=== PATIENT | female | born 1975 | race Caucasian/White ===

== ENCOUNTER 2018-10-15 21:14 | Inpatient (IN) ==
[2018-10-16] MEDS ORDERED: Ondansetron 4 MG/2 ML VIAL IVP PRN (01:13)
[2018-10-16] MEDS: 0.9 % Sodium Chloride 1,000 ML IVC SCH ×3 (01:26→23:13)
[2018-10-16] MEDS: *HR* FentaNYL (PF) 100 MCG/2 ML VIAL IVP PRN ×3 (01:27→20:07)
[2018-10-16] MEDS ORDERED: *HR* Promethazine 25 MG/ML VIAL IVP PRN (01:32)
[2018-10-16 02:02] LABS: Basophils % 0.3 %; Eosinophils # 0.1 K/mcL (0.0-0.6); Eosinophils % 0.8 %; Hematocrit 32.1 % (35.3-44.9); Hemoglobin 10.8 g/dL (11.5-15.4); Immature Granulocytes % 0.5 % (0-4); Lymphocytes # 2.4 K/mcL (0.6-4.6); Lymphocytes % 21.3 %; Mean Corpuscular HGB Conc 33.6 g/dL (31.6-35.5); Mean Corpuscular Hemoglobin 32.2 pg (28.0-33.3); Mean Corpuscular Volume 95.8 fL (83.0-100.0); Mean Platelet Volume 9.1 fL (9.4-12.4); Monocytes # 1.2 K/mcL (0.0-1.3); Monocytes % 10.6 %; Neutrophils # 7.4 K/mcL (1.6-8.9); Platelet Count 231 K/mcL (140-400); Red Blood Count 3.35 M/mcL (3.82-4.97); Red Cell Distribution Width 12.4 % (11.5-14.5); Segmented Neutrophils % 66.5 %
[2018-10-16] MEDS ORDERED: Naloxone 0.4 MG/ML INJ IVP PRN (02:02)
[2018-10-16] MEDS ORDERED: Acetaminophen 325 MG TABLET PO PRN (02:02)
[2018-10-16 02:12] LABS: Alanine Aminotransferase 8 Units/L (7-52); Albumin 3.2 g/dL (3.5-5.7); Albumin/Globulin Ratio 1.4 (1.1-2.2); Alkaline Phosphatase 43 Units/L (34-104); Aspartate Amino Transferase 9 Units/L (13-39); BUN/Creatinine Ratio 17 (6-26); Bilirubin,Total 0.3 mg/dL (0.3-1.0); Blood Urea Nitrogen 7 mg/dL (6-20); Carbon Dioxide 22 mEq/L (23-29); Chloride 111 mEq/L (98-107); Globulin 2.3 g/dL (2.4-3.5); Glucose 86 mg/dL (70-105); Osmolality,Calculated 283 (280-300); Potassium 3.4 mEq/L (3.5-5.1); Sodium 138 mEq/L (136-145); Total Protein 5.5 g/dL (6.4-8.9); eGFR For Non-African Americans > 60 (> 60)
--- NOTE | 2018-10-16 02:14 | Internal Med History&Physical ---
Date of Encounter: 10/16/18 Time of Encounter: 01:30 Internal Medicine - H&P: HPI Chief complaint: Abdominal pain Admitted From: Intrahospital Transfer Plans for Post Hospital Care: Home History of present illness: Ms. Freitas is a 43 year old female w/PMH of anxiety and depression presents as a transfer from [facility] ED for CC of abdominal pain and flank pain that began on Thursday. Pt. reports associated sx of fever and chills which have since subsided. Pt. states this has never happened before. Reports no alleviating or aggravating factors. States she has right flank pain and left quadrant pain. Pt. states she was seen at Urgent Care and dxd w/constipation and discharged on mag citrate w/o relief. Pt. denies unusual bleeding or bloody/dark stools, recent illness, nausea, vomiting, headache, changes in vision, chest pain, shortness of breath, cough, chest congestion, diarrhea, constipation, dizziness, li ghtheadedness, numbness, tingling, pre-syncope, or syncope. Past Med Surg Social Fam HX - Past Medical History Source: patient, old records reviewed, obtained from family Medical history: no medical history Psychiatric history: anxiety, depression - Past Surgical History Surgical History: hysterectomy - Social History Smoking Status: Current every day smoker Packs per day: <1 PPD Smokeless Tobacco Status: No Alcohol use: occasionally, recent Drug use: none Current living situation: Home, With Family Activity Level: Independent ambulation Recent Out of Country Travel Within the Last 8 Weeks: No Exposure or Possible Exposure to Illness During Travel: No - Family History Grandmother Race: Family Member Ethnicity: Non- Living Status: Hx Family Endocrine Disorder: Yes (DM) Father Race: Family Member Ethnicity: Non- Living Status: Still Living Hx Family Medical Disorders: No Mother Race: Family Member Ethnicity: Non- Living Status: Still Living Hx Family Cardiac Disorders: Yes (Atrial fibrillation) Brother Race: Family Member Ethnicity: Non- Living Status: Still Living Hx Family Medical Disorders: No Internal Medicine - H&P: Meds Escitalopram [Lexapro] 10 mg PO DAILY 10/15/18 [History] Allergy/AdvReac Type Severity Reaction Status Date / Time No Known Allergies Allergy Verified 11/06/16 02:15 All Systems PM: A 10-system review of systems was performed and is negative for pertinent findings except as documented above in the HPI. - Constitutional Constitutional: no chills, no fever(s), no night sweats - EENT Eyes: no change in vision, no discharge, no pain, no photophobia Ears: no ear discharge, no ear pain, no tinnitus Nose, mouth and throat: no dysphagia, no nasal discharge, no neck pain, no sore throat - Breasts Breasts: as per HPI - Cardiovascular Cardiovascular ROS IM: no chest pain, no diaphoresis, no dyspnea, no lightheadedness, no palpitations, no syncope - Respiratory Respiratory: no cough, no dyspnea, no wheezing, no excessive phlegm production - Gastrointestinal Gastrointestinal: as per HPI, abdominal pain, no diarrhea, no hematemesis, no hematochezia, no melena, no nausea, no vomiting - Genitourinary Genitourinary: no change in urinary stream, no dysuria, no flank pain, no hematuria Menstruation: as per HPI, post hysterectomy - Musculoskeletal Musculoskeletal ROS IM: no numbness, no tingling - Integumentary Integumentary IM: no rash, no unusual bruising - Neurological Neurological ROS: no confusion, no convulsions, no focal weakness, no numbness, no tingling, no tremor(s) - Psychiatric Psychiatric: as per HPI - Endocrine Endocrine IM: as per HPI - Hematologic/Lymphatic Hematologic/Lymphatic: no easy bruising - Allergic/Immunologic Allergic/Immunologic: as per HPI - Constitutional Vitals: Temp Pulse Resp BP Pulse Ox 98.1 F 78 15 112/75 98 10/15/18 23:52 10/15/18 23:52 10/15/18 23:52 10/15/18 23:52 10/15/18 23:52 General appearance: Present: cooperative, mild distress (Left quadrant abdominal pain/Right flank pain), A&O X 3, pleasant, answers questions appropriately Exam: Pt. examined at bedside. Pt. resting in bed reporting abdominal and flank pain but states her nausea, fever, and chills have subsided. Discussed CT of the abdomen/pelvis w/pt. and her and plan of care regarding NPO status, IV antibiotics, and surgical consult. All questions answered. Pt. denies any other sx or complaints at this time. VS: 98.1F temp, HR 78, RR 15, BP 112/75, SPO2 98% on room air. - Head Head exam: Present: atraumatic, normocephalic - Eye Eye exam: Present: PERRL, conjuntiva pink, sclera anicteric Pupils: Present: PERRL - ENT ENT exam: Present: normal exam - Neck Neck exam general surgery: Present: supple, trachea midline. Absent: lymphadenopathy - Respiratory Respiratory exam: Present: CTAB. Absent: accessory muscle use, rales, rhonchi, wheezes - Cardiovascular Cardiovascular exam: Present: RRR, +S1, +S2. Absent: diastolic murmur, gallop, rubs, systolic murmur - GI/Abdominal GI/Abdominal exam: Present: hypoactive bowel sounds, soft, tenderness, no peritoneal signs. Absent: distended - Rectal Rectal exam: Present: deferred - Additional comments: exam deferred. - Extremities Exam Extremities exam: Present: warm, radial pulses palpable and symmetrical. Absent: calf tenderness, cyanotic, pedal edema - Back Exam Back exam: Present: normal inspection - Neurological Exam Neurological exam: Present: alert, CN II-XII intact, oriented X3, no focal deficits. Absent: pronater drift, facial droop, speech deficit - Psychiatric Psychiatric exam: Present: normal affect, normal mood - Skin Skin exam: Present: dry, intact Internal Med - H&P Results - Labs CBC & Chem 7: 10/16/18 01:40 10/16/18 01:40 Labs: Short CBC 10/16/18 Range/Units 01:40 WBC 11.1 (4.3-11.1) K/mcL Hgb 10.8 L D (11.5-15.4) g/dL Hct 32.1 L (35.3-44.9) % Plt Count 231 (140-400) K/mcL Neutrophils # 7.4 (1.6-8.9) K/mcL - Diagnostic Studies CT scan - abdomen Additional comments: EXAMINATION: CT OF THE ABDOMEN AND PELVIS WITHOUT CONTRAST 10/15/2018 6:50 pm TECHNIQUE: CT of the abdomen and pelvis was performed without the administration of intravenous contrast. Multiplanar reformatted images are provided for review. Dose modulation, iterative reconstruction, and/or weight based adjustment of the mA/kV was utilized to reduce the radiation dose to as low as reasonably achievable. COMPARISON: None. HISTORY: ORDERING SYSTEM PROVIDED HISTORY: Left flank pain FINDINGS: Lower Chest: Lung bases are clear and the heart size is normal. Organs: The liver, spleen, pancreas, adrenal glands and kidneys are normal with the limitations of a noncontrast study. There is no urolithiasis or acute obstructive uropathy. There are no calcified gallstones. GI/Bowel: There is acute diverticulitis in the proximal descending colon with bowel wall thickening and pericolonic fat stranding. There is a small amount of extraluminal gas suggesting walled-off perforation. There is no evidence of a drainable fluid collection/abscess. Scattered diverticula are present in the left colon. Unopacified bowel loops are otherwise unremarkable. The appendix is normal. Pelvis: The uterus is apparently surgically absent. Urinary bladder is unremarkable. There are several phleboliths in the lower pelvis. Peritoneum/Retroperitoneum: There is no adenopathy, free air or free fluid. Bones/Soft Tissues: No acute bone or soft tissue abnormality. CT/CT abd pelvis wo no iv no oral IMPRESSION: Acute short segment diverticulitis involving the proximal descending colon. There are few small bubbles of extraluminal gas suggesting a walled-off perforation. There is no drainable fluid collection/abscess. Follow-up is recommended. D/ / Ever Gallo MD / Ever Gallo MD Interpreting Provider: Ever Gallo MD - Assessment and plan (1) Diverticulitis of large intestine with perforation Current Visit: Yes Status: Acute Assessment and plan: Acute diverticulitis of the large intestine w/suggested walled-off perforation. Pt. states abdominal pain and flank pain began on Thursday. Pt. reports associated sx of fever and chills which have since subsided. Pt. states this has never happened before. Reports no alleviating or aggravating factors. States she has right flank pain and left quadrant pain. Pt. states she was seen at Urgent Care and dxd w/constipation and discharged on mag citrate w/o relief. Pt. denies unusual bleeding or bloody/dark stools. CT of the abdomen/pelvis shows acute short segment diverticulitis involving the proximal descending colon. There are few small bubbles of extraluminal gas suggesting a walled-off perforation. There is no drainable fluid collection/abscess. Follow-up is recommended. NPO. 0.9 IV fluids @ 100 mls/hr. Stair-step pain medications for pain management. Zofran and Phenergan IVP ordered for N/V control. Surgery consult ordered but not confirmed d/t late hour. A.M. team to confirm Surgery consult w/Dr. Farias. IVPB Flagyl and Levaquin ordered for infection control. Pts. WBC 13.0 on admission. Pt. afebrile on admission and does not currently meet sepsis criteria but will be monitored closely overnight. Pt. is high risk for further morbidity, complications, and infection d/t current new onset of diverticulitis, CT showing possible walled-off perforation, leukocytosis, current pain requiring pain mgmt, and risk for sepsis. Inpatient. Qualifiers: Diverticulitis bleeding: without bleeding Qualified Code(s): K57.20 - Diverticulitis of large intestine with perforation and abscess without bleeding (2) Abdominal pain Current Visit: Yes Status: Acute Assessment and plan: Acute left quadrant abdominal pain. CT of the abdomen/pelvis shows acute short segment diverticulitis involving the proximal descending colon. There are few small bubbles of extraluminal gas suggesting a walled-off perforation. There is no drainable fluid collection/abscess. Follow-up is recommended. NPO. 0.9 IV fluids @ 100 mls/hr. Stair-step pain medications for pain management. Zofran and Phenergan IVP ordered for N/V control. Qualifiers: Abdominal location: left upper quadrant Qualified Code(s): R10.12 - Left upper quadrant pain (3) Anxiety and depression Current Visit: Yes Status: Chronic Assessment and plan: Hx of chronic anxiety and depression. Continue pts. Lexapro. (4) DVT prophylaxis Current Visit: Yes Status: Acute Assessment and plan: Bilateral SCDs on LEs for DVT prophylaxis d/t possible surgical intervention. - Time Spent With Patient Total time spent is greater than 50% in coordination of care (as documented) at patient's floor/unit and/or counseling patient: Greater than 35 minutes
[2018-10-16] MEDS ORDERED: *HR* Heparin 5,000 UNIT/ML VIAL SQ SCH (06:00)
[2018-10-16 07:49] LABS: Basophils % 0.2 %; Eosinophils # 0.1 K/mcL (0.0-0.6); Eosinophils % 1.1 %; Hematocrit 31.3 % (35.3-44.9); Hemoglobin 10.4 g/dL (11.5-15.4); Immature Granulocytes % 0.5 % (0-4); Lymphocytes # 1.9 K/mcL (0.6-4.6); Lymphocytes % 18.3 %; Mean Corpuscular HGB Conc 33.2 g/dL (31.6-35.5); Mean Corpuscular Hemoglobin 31.8 pg (28.0-33.3); Mean Corpuscular Volume 95.7 fL (83.0-100.0); Mean Platelet Volume 9.8 fL (9.4-12.4); Monocytes # 1.1 K/mcL (0.0-1.3); Platelet Count 259 K/mcL (140-400); Red Blood Count 3.27 M/mcL (3.82-4.97); Red Cell Distribution Width 12.6 % (11.5-14.5); Segmented Neutrophils % 68.9 %
[2018-10-16 08:18] LABS: Alanine Aminotransferase 7 Units/L (7-52); Albumin 3.1 g/dL (3.5-5.7); Albumin/Globulin Ratio 1.3 (1.1-2.2); Alkaline Phosphatase 43 Units/L (34-104); Aspartate Amino Transferase 10 Units/L (13-39); BUN/Creatinine Ratio 18 (6-26); Bilirubin,Total 0.3 mg/dL (0.3-1.0); Blood Urea Nitrogen 7 mg/dL (6-20); Calcium 7.9 mg/dL (8.6-10.3); Carbon Dioxide 21 mEq/L (23-29); Chloride 111 mEq/L (98-107); Chol/HDL Ratio 2.9 (0-4.9); Cholesterol 117 mg/dL (< 200); Globulin 2.3 g/dL (2.4-3.5); Glucose 80 mg/dL (70-105); HDL Cholesterol 41 mg/dL (40-59); LDL Cholesterol,Calculated 65 mg/dL (0-99); Magnesium 1.8 mg/dL (1.6-2.6); Osmolality,Calculated 285 (280-300); Potassium 3.4 mEq/L (3.5-5.1); Sodium 139 mEq/L (136-145); Total Protein 5.4 g/dL (6.4-8.9); Triglycerides 55 mg/dL (< 150); eGFR For Non-African Americans > 60 (> 60)
[2018-10-16] MEDS: *HR* OxyCODONE Immed Rel 5 MG TABLET PO PRN ×3 (09:07→23:13)
[2018-10-16] MEDS: MetroNIDAZOLE 500 MG/100 ML 500 MG/100 ML BAG IVPB SCH ×3 (09:08→23:13)
[2018-10-16] MEDS ORDERED: Potassium Chloride Elixir 20 MEQ/15 ML UDC PO ONE (10:08)
--- NOTE | 2018-10-16 10:25 | General Surgery Consult Note ---
Date of Encounter: 10/16/18 Time of Encounter: 10:10 History of Present Illness Reason for consult: abdominal pain (Left upper quadrant abdominal pain, diverticulitis) Requesting physician: Pernell Ricardo History of present illness: 43 yo, transferred from [facility] after presenting there with approximately 3 day history of progressive left sided abdominal pain. There were apparent associated symptoms of fevers and chills but no nausea or vomiting. CT abdomen/pelvis demonstrated pericolonic inflammation proximal descending colon with bowel wall thickening and pericolonic fat stranding. A small amount of extraluminal air consistent with a walled off perforation was also identified. She was referred to [facility] for further evaluation and treatment, including surgical evaluation and possible intervention. The patient has never had symptoms like this before. Past medical history: Anxiety, depression Surgical history: Hysterectomy Allergies: No known drug allergies Medications: Lexapro 10 mg by mouth daily Social history: G0, P0; patient admits to tobacco use, less than a pack per week and alcohols consumption on weekends. Patient denies any illicit drug use. Family history: Not obtained Physical examination: Age-appropriate woman resting comfortably in her hospital bed. She is in no acute distress despite her complaints of left upper quadrant abdominal pain. The patient indicates that overnight the pain has not improved, nor worsened. The patient has remained afebrile, currently 98.2, pulse ranging 78-95, respirations 16-18, blood pressure 108/73 to 116/78 Skin: Warm, no obvious jaundice. Several cutaneous tattoos are evident Lungs: Clear bilaterally; minimal left-sided pain on deep inspiration Cardiac: Regular rate, no appreciable murmurs Abdomen: Tender in the left upper quadrant without discernible intra- abdominal masses. No peritoneal signs or rebound. Bowel sounds are active but diminished Extremities: No obvious clubbing, cyanosis, or edema. CT abdomen/pelvis - reviewed with [facility] Labs: WBC 10.1, hemoglobin 10.4 with hematocrit 31.3; differential within normal limits; platelet count 259,000. (WBC 13.0, hemoglobin 13.0 with hematocrit 37.4 per [facility] 10/15/2018) Sodium 139, potassium 3.4, chloride 111, the 17, creatinine 0.4 LFTs within normal limits Impression: 43-year-old, transferred from [facility] after presenting there with new onset left sided of abdominal and flank pain. Findings are consistent with acute diverticulitis of the proximal descending colon with a small collection of extraluminal air consistent with perforation. This perforation appears to be contained. Anemia / depressed H&H likely due to dilution/IV resuscitation at [facility] and following transfer to [facility] Hypokalemia History of anxiety/depression Recommendations: Continue IV antibiotics (patient currently on Levaquin and metronidazole). allow sips water and ice chips; may have oral meds (lexapro) correct hypokalemia Continue to monitor abdominal status; worsening pain, developing peritoneal signs are indications for emergent surgery. I will follow along with you and make further recommendations based on the patient's status and response to intervention. Past Med Surg Social Fam HX - Past Medical History Medical history: no medical history Psychiatric history: anxiety, depression - Past Surgical History Surgical History: hysterectomy - Social History Smoking Status: Current every day smoker Packs per day: <1 PPD Smokeless Tobacco Status: No Alcohol use: occasionally, recent Drug use: none - Family History Grandmother Race: Family Member Ethnicity: Non- Living Status: Hx Family Endocrine Disorder: Yes (DM) Father Race: Family Member Ethnicity: Non- Living Status: Still Living Hx Family Medical Disorders: No Mother Race: Family Member Ethnicity: Non- Living Status: Still Living Hx Family Cardiac Disorders: Yes (Atrial fibrillation) Brother Race: Family Member Ethnicity: Non- Living Status: Still Living Hx Family Medical Disorders: No Medications and Allergies Escitalopram [Lexapro] 10 mg PO DAILY 10/15/18 [History] Allergy/AdvReac Type Severity Reaction Status Date / Time No Known Allergies Allergy Verified 11/06/16 02:15 Review of Systems All systems PM: The remainder of the systems were reviewed and are negative General Surgery Exam Initial Vital Signs Temp Pulse Resp BP Pulse Ox 98.1 F 78 15 112/75 98 10/15/18 23:52 10/15/18 23:52 10/15/18 23:52 10/15/18 23:52 10/15/18 23:52 Exam Initial Vital Signs Temp Pulse Resp BP Pulse Ox 98.1 F 78 15 112/75 98 10/15/18 23:52 10/15/18 23:52 10/15/18 23:52 10/15/18 23:52 10/15/18 23:52 Results - Labs 10/16/18 06:58 10/16/18 06:58 Abnormal lab results RBC 3.27 M/mcL (3.82-4.97) L 10/16/18 06:58 Hgb 10.4 g/dL (11.5-15.4) L 10/16/18 06:58 Hct 31.3 % (35.3-44.9) L 10/16/18 06:58 Potassium 3.4 mEq/L (3.5-5.1) L 10/16/18 06:58 Chloride 111 mEq/L (98-107) H 10/16/18 06:58 Carbon Dioxide 21 mEq/L (23-29) L 10/16/18 06:58 Creatinine 0.40 mg/dL (0.60-1.20) L 10/16/18 06:58 Calcium 7.9 mg/dL (8.6-10.3) L 10/16/18 06:58 AST 10 Units/L (13-39) L 10/16/18 06:58 Serum Total Protein 5.4 g/dL (6.4-8.9) L 10/16/18 06:58 Albumin 3.1 g/dL (3.5-5.7) L 10/16/18 06:58 Globulin 2.3 g/dL (2.4-3.5) L 10/16/18 06:58 Diabetes panel 10/16/18 10/16/18 Range/Units 01:40 06:58 Sodium 138 139 (136-145) mEq/L Potassium 3.4 L 3.4 L (3.5-5.1) mEq/L Chloride 111 H 111 H (98-107) mEq/L Carbon Dioxide 22 L 21 L (23-29) mEq/L BUN 7 7 (6-20) mg/dL Creatinine 0.41 L 0.40 L (0.60-1.20) mg/dL Glucose 86 80 (70-105) mg/dL Calcium 8.0 L 7.9 L (8.6-10.3) mg/dL AST 9 L 10 L (13-39) Units/L ALT 8 7 (7-52) Units/L Alkaline Phosphatase 43 43 (34-104) Units/L Albumin 3.2 L 3.1 L (3.5-5.7) g/dL Triglycerides 55 (< 150) mg/dL HDL Cholesterol 41 (40-59) mg/dL Calcium panel 10/16/18 10/16/18 Range/Units 01:40 06:58 Calcium 8.0 L 7.9 L (8.6-10.3) mg/dL Albumin 3.2 L 3.1 L (3.5-5.7) g/dL Pituitary panel 10/16/18 10/16/18 Range/Units 01:40 06:58 Sodium 138 139 (136-145) mEq/L Potassium 3.4 L 3.4 L (3.5-5.1) mEq/L Chloride 111 H 111 H (98-107) mEq/L Carbon Dioxide 22 L 21 L (23-29) mEq/L BUN 7 7 (6-20) mg/dL Creatinine 0.41 L 0.40 L (0.60-1.20) mg/dL Glucose 86 80 (70-105) mg/dL Calcium 8.0 L 7.9 L (8.6-10.3) mg/dL Adrenal panel 10/16/18 10/16/18 Range/Units 01:40 06:58 Sodium 138 139 (136-145) mEq/L Potassium 3.4 L 3.4 L (3.5-5.1) mEq/L Chloride 111 H 111 H (98-107) mEq/L Carbon Dioxide 22 L 21 L (23-29) mEq/L BUN 7 7 (6-20) mg/dL Creatinine 0.41 L 0.40 L (0.60-1.20) mg/dL Glucose 86 80 (70-105) mg/dL Calcium 8.0 L 7.9 L (8.6-10.3) mg/dL Total Bilirubin 0.3 0.3 (0.3-1.0) mg/dL AST 9 L 10 L (13-39) Units/L ALT 8 7 (7-52) Units/L Alkaline Phosphatase 43 43 (34-104) Units/L Albumin 3.2 L 3.1 L (3.5-5.7) g/dL All other labs normal. Consult Discharge Plan - Plan Referrals: NONE,PCP [Primary Care Provider] -
[2018-10-16] MEDS: Levofloxacin 750 MG/150 ML 750 MG/150 ML BAG IVPB SCH (20:08)
[2018-10-17] MEDS: *HR* OxyCODONE Immed Rel 5 MG TABLET PO PRN ×3 (05:49→18:54)
[2018-10-17 06:57] LABS: Basophils % 0.5 %; Eosinophils # 0.1 K/mcL (0.0-0.6); Eosinophils % 1.5 %; Hematocrit 37.6 % (35.3-44.9); Immature Granulocytes % 0.5 % (0-4); Lymphocytes # 1.6 K/mcL (0.6-4.6); Lymphocytes % 18.3 %; Mean Corpuscular HGB Conc 32.7 g/dL (31.6-35.5); Mean Corpuscular Volume 97.9 fL (83.0-100.0); Mean Platelet Volume 9.7 fL (9.4-12.4); Monocytes # 0.9 K/mcL (0.0-1.3); Monocytes % 10.6 %; Platelet Count 265 K/mcL (140-400); Red Blood Count 3.84 M/mcL (3.82-4.97); Red Cell Distribution Width 12.5 % (11.5-14.5); Segmented Neutrophils % 68.6 %
[2018-10-17 06:58] LABS: Hemoglobin 12.3 g/dL (11.5-15.4)
[2018-10-17 07:20] LABS: Alanine Aminotransferase 8 Units/L (7-52); Albumin 3.5 g/dL (3.5-5.7); Albumin/Globulin Ratio 1.3 (1.1-2.2); Alkaline Phosphatase 46 Units/L (34-104); Aspartate Amino Transferase 11 Units/L (13-39); BUN/Creatinine Ratio 7 (6-26); Bilirubin,Total 0.2 mg/dL (0.3-1.0); Blood Urea Nitrogen 3 mg/dL (6-20); Calcium 8.7 mg/dL (8.6-10.3); Carbon Dioxide 21 mEq/L (23-29); Chloride 104 mEq/L (98-107); Globulin 2.7 g/dL (2.4-3.5); Glucose 66 mg/dL (70-105); Osmolality,Calculated 283 (280-300); Potassium 3.5 mEq/L (3.5-5.1); Sodium 139 mEq/L (136-145); Total Protein 6.2 g/dL (6.4-8.9); eGFR For Non-African Americans > 60 (> 60)
[2018-10-17] MEDS: *HR* FentaNYL (PF) 100 MCG/2 ML VIAL IVP PRN ×3 (08:33→21:37)
[2018-10-17] MEDS: MetroNIDAZOLE 500 MG/100 ML 500 MG/100 ML BAG IVPB SCH ×2 (08:35→15:14)
[2018-10-17] MEDS: 0.9 % Sodium Chloride 1,000 ML IVC SCH ×2 (08:39→12:29)
--- NOTE | 2018-10-17 11:34 | General Surgery Progress Note ---
Date of Encounter: 10/17/18 Time of Encounter: 11:28 Subjective Patient reports: feels better, still having pain Narrative: General Surgery - Patient feeling better; abdominal pain diminished though patient is still complaining of intermittent sharp stabbing flank pain. Patient remains afebrile, currently 98.5, pulse 82, respirations 14, blood pressure 137/79. Lungs: Clear, no abdominal pain with deep inspiration Abdomen: Soft, definitely less left upper quadrant abdominal tenderness. No peritoneal signs or rebound. Active bowel sounds. Labs: WBC 8.7, differential within normal limits. Hemoglobin 12.3 with hematocrit 37.6. Electrolytes, BUN, creatinine within normal limits, hypokalemia corrected to 3.5 Impression: Acute diverticulitis proximal descending colon. Status improved. Exam elicits less abdominal tenderness though the patient is still complaining of intermittent sharp stabbing flank pain. Discussed in detail with the patient and family in attendance. Recommendations: Continue IV antibiotics Allow clear liquids Decrease IV fluids as enteral route becomes available Monitor for increasing abdominal pain as diet initiated Objective Vital Signs - Last 8 Hours Temp Pulse Resp BP Pulse Ox 10/17/18 10:23 98.5 F 82 14 137/79 98 10/17/18 07:54 98 10/17/18 05:24 98.5 F 85 14 148/85 98 Intake and Output 10/16/18 10/17/18 10/17/18 23:59 07:59 15:59 Intake Total 1250 / 1250 100 / 100 1000 / 1000 Output Total 300 / 300 0 / 0 Balance 950 / 950 100 / 100 1000 / 1000 Intake: IV Fluids 1250 / 1250 100 / 100 1000 / 1000 0.9 % Sodium Chloride 1,000 ML 1000 / 1000 1000 / 1000 @ 100 mls/hr IVC .Q10H [facility] Rx#: [id number] Levaquin Premix 750mg/150 mL 150 / 150 750 mg In 150 ml @ 100 mls/hr IVPB Q24H [facility] Rx#:[id number] Flagyl Premix 500 MG/100 ML 500 100 / 100 100 / 100 mg In 100 ml @ 100 mls/hr IVPB Q8HR [facility] Rx#:[id number] Oral 0 / 0 0 / 0 0 / 0 Output: Urine 300 / 300 0 / 0 Other: Meal DINNER NPO BREAKFAST NPO Percent of Meal Consumed 0% 0% # Voids 1 # Bowel Movements 0 Weight 63.5 kg Blood Glucose* 82 73 Patient Weight 10/17/18 23:59 Weight 63.5 kg - Labs 10/17/18 05:22 10/17/18 05:22 Diabetes panel 10/17/18 Range/Units 05:22 Sodium 139 (136-145) mEq/L Potassium 3.5 (3.5-5.1) mEq/L Chloride 104 (98-107) mEq/L Carbon Dioxide 21 L (23-29) mEq/L BUN 3 L (6-20) mg/dL Creatinine 0.46 L (0.60-1.20) mg/dL Glucose 66 L (70-105) mg/dL Calcium 8.7 (8.6-10.3) mg/dL AST 11 L (13-39) Units/L ALT 8 (7-52) Units/L Alkaline Phosphatase 46 (34-104) Units/L Albumin 3.5 (3.5-5.7) g/dL Calcium panel 10/17/18 Range/Units 05:22 Calcium 8.7 (8.6-10.3) mg/dL Albumin 3.5 (3.5-5.7) g/dL Pituitary panel 10/17/18 Range/Units 05:22 Sodium 139 (136-145) mEq/L Potassium 3.5 (3.5-5.1) mEq/L Chloride 104 (98-107) mEq/L Carbon Dioxide 21 L (23-29) mEq/L BUN 3 L (6-20) mg/dL Creatinine 0.46 L (0.60-1.20) mg/dL Glucose 66 L (70-105) mg/dL Calcium 8.7 (8.6-10.3) mg/dL Adrenal panel 10/17/18 Range/Units 05:22 Sodium 139 (136-145) mEq/L Potassium 3.5 (3.5-5.1) mEq/L Chloride 104 (98-107) mEq/L Carbon Dioxide 21 L (23-29) mEq/L BUN 3 L (6-20) mg/dL Creatinine 0.46 L (0.60-1.20) mg/dL Glucose 66 L (70-105) mg/dL Calcium 8.7 (8.6-10.3) mg/dL Total Bilirubin 0.2 L (0.3-1.0) mg/dL AST 11 L (13-39) Units/L ALT 8 (7-52) Units/L Alkaline Phosphatase 46 (34-104) Units/L Albumin 3.5 (3.5-5.7) g/dL Consult Discharge Plan - Plan Referrals: NONE,PCP [Primary Care Provider] -
--- NOTE | 2018-10-17 14:04 | Internal Med Progress Note ---
Hospitalist Progress Note - Encounter Date of Encounter: 10/17/18 Time of Encounter: 14:04 - Subjective Interval History: Pt states she is feeling better. and mother at bedside. She denies fever chills/N/V or diarrhea. She denies chest pain or SOB. - Exam Vitals: Temp Pulse Resp BP Pulse Ox 98.5 F 82 14 137/79 98 10/17/18 10:23 10/17/18 10:23 10/17/18 10:23 10/17/18 10:23 10/17/18 10:23 Exam: General appearance: Present: cooperative, mild distress (Left quadrant abdominal pain/Right flank pain), A&O X 3, pleasant, answers questions appropriately Exam: - Head Head exam: Present: atraumatic, normocephalic - Eye Eye exam: Present: PERRL, conjuntiva pink, sclera anicteric Pupils: Present: PERRL - ENT ENT exam: Present: normal exam - Neck Neck exam general surgery: Present: supple, trachea midline. Absent: lymphadenopathy - Respiratory Respiratory exam: Present: CTAB. Absent: accessory muscle use, rales, rhonchi, wheezes - Cardiovascular Cardiovascular exam: Present: RRR, +S1, +S2. Absent: diastolic murmur, gallop, rubs, systolic murmur - GI/Abdominal GI/Abdominal exam: Present: hypoactive bowel sounds, soft, tenderness much i mproved, no peritoneal signs. Absent: distended - Rectal Rectal exam: Present: deferred - Additional comments: exam deferred. - Extremities Exam Extremities exam: Present: warm, radial pulses palpable and symmetrical. Absent: calf tenderness, cyanotic, pedal edema - Back Exam Back exam: Present: normal inspection - Neurological Exam Neurological exam: Present: alert, CN II-XII intact, oriented X3, no focal deficits. Absent: pronater drift, facial droop, speech deficit - Psychiatric Psychiatric exam: Present: normal affect, normal mood - Skin Skin exam: Present: dry, intact - Assessment and Plan (1) Diverticulitis of large intestine with perforation Current Visit: Yes Status: Acute Assessment and Plan: Acute diverticulitis of the large intestine w/suggested walled-off perforation as seen on CT abdomen/pelvis. IVPB Flagyl and Levaquin ordered for infection control. Pts WBC 13.0 on admission down to 8.7. Zofran and Phenergan IVP ordered for N/V control. NPO. 0.9 IV fluids @ 100 mls/hr. Surgery on board and following. CT abdomen and pelvis CT/CT abd pelvis wo no iv no oral IMPRESSION: Acute short segment diverticulitis involving the proximal descending colon. There are few small bubbles of extraluminal gas suggesting a walled-off perforation. There is no drainable fluid collection/abscess. Follow-up is recommended. (2) Abdominal pain Current Visit: Yes Status: Acute Assessment and Plan: Due to acute diverticulitis with walled off perf. Continue on antibiotics and fluids. Surgery following. (3) Anxiety and depression Current Visit: Yes Status: Chronic Assessment and Plan: Hx of chronic anxiety and depression. Continue pts. Lexapro. DVT Prophylaxis: Bilateral SCDs on LEs for DVT prophylaxis d/t possible surgical intervention. - Summary of Assessment and Plan Summary of Assessment and Plan: History of present illness: Pernell Ricardo Ms. Freitas is a 43 year old female w/PMH of anxiety and depression presents as a transfer from [facility] ED for CC of abdominal pain and flank pain that began on Thursday. Pt. reports associated sx of fever and chills which have since subsided. Pt. states this has never happened before. Reports no alleviating or aggravating factors. States she has right flank pain and left quadrant pain. Pt. states she was seen at Urgent Care and dxd w/constipation and discharged on mag citrate w/o relief. Pt. denies unusual bleeding or bloody/dark stools, recent illness, nausea, vomiting, headache, changes in vision, chest pain, shortness of breath, cough, chest congestion, diarrhea, constipation, dizziness, lightheadedness, numbness, tingling, pre-syncope, or syncope. - Time Spent with Patient Total time spent is greater than 50% in coordination of care (as documented) at patient's floor/unit and/or counseling patient: less than 15 minutes Plan of Care Discussed with: patient Internal Medicine: Result - Labs CBC & Chem 7: 10/17/18 05:22 10/17/18 05:22 Labs: Short CBC 10/17/18 Range/Units 05:22 WBC 8.7 (4.3-11.1) K/mcL Hgb 12.3 D (11.5-15.4) g/dL Hct 37.6 (35.3-44.9) % Plt Count 265 (140-400) K/mcL Neutrophils # 6.0 (1.6-8.9) K/mcL BMP 10/17/18 05:22 Sodium 139 Potassium 3.5 Chloride 104 Carbon Dioxide 21 L BUN 3 L Creatinine 0.46 L Glucose 66 L Calcium 8.7 Liver Function 10/17/18 Range/Units 05:22 Total Bilirubin 0.2 L (0.3-1.0) mg/dL AST 11 L (13-39) Units/L ALT 8 (7-52) Units/L Alkaline Phosphatase 46 (34-104) Units/L Albumin 3.5 (3.5-5.7) g/dL Consult Discharge Plan - Plan Referrals: NONE,PCP [Primary Care Provider] - _ (1) Diverticulitis of large intestine with perforation Qualifiers: Diverticulitis bleeding: without bleeding Qualified Code(s): K57.20 - Diverticulitis of large intestine with perforation and abscess without bleeding (2) Abdominal pain Qualifiers: Abdominal location: left upper quadrant Qualified Code(s): R10.12 - Left upper quadrant pain
[2018-10-17] MEDS: Levofloxacin 750 MG/150 ML 750 MG/150 ML BAG IVPB SCH (20:06)
[2018-10-18] MEDS: MetroNIDAZOLE 500 MG/100 ML 500 MG/100 ML BAG IVPB SCH ×3 (00:40→16:56)
[2018-10-18] MEDS: *HR* OxyCODONE Immed Rel 5 MG TABLET PO PRN ×4 (00:51→23:07)
[2018-10-18 05:39] LABS: Basophils % 0.4 %; Eosinophils # 0.1 K/mcL (0.0-0.6); Hematocrit 34.3 % (35.3-44.9); Hemoglobin 11.7 g/dL (11.5-15.4); Immature Granulocytes % 0.4 % (0-4); Lymphocytes # 1.8 K/mcL (0.6-4.6); Lymphocytes % 26.1 %; Mean Corpuscular HGB Conc 34.1 g/dL (31.6-35.5); Mean Corpuscular Hemoglobin 31.7 pg (28.0-33.3); Mean Platelet Volume 8.8 fL (9.4-12.4); Monocytes # 0.9 K/mcL (0.0-1.3); Monocytes % 12.8 %; Platelet Count 274 K/mcL (140-400); Red Blood Count 3.69 M/mcL (3.82-4.97); Red Cell Distribution Width 12.1 % (11.5-14.5); Segmented Neutrophils % 58.3 %
[2018-10-18 06:05] LABS: Alanine Aminotransferase 7 Units/L (7-52); Albumin 3.2 g/dL (3.5-5.7); Albumin/Globulin Ratio 1.2 (1.1-2.2); Alkaline Phosphatase 41 Units/L (34-104); Aspartate Amino Transferase 11 Units/L (13-39); BUN/Creatinine Ratio 7 (6-26); Bilirubin,Total 0.2 mg/dL (0.3-1.0); Blood Urea Nitrogen 3 mg/dL (6-20); Calcium 8.7 mg/dL (8.6-10.3); Carbon Dioxide 26 mEq/L (23-29); Chloride 105 mEq/L (98-107); Globulin 2.7 g/dL (2.4-3.5); Glucose 81 mg/dL (70-105); Osmolality,Calculated 284 (280-300); Potassium 3.5 mEq/L (3.5-5.1); Sodium 139 mEq/L (136-145); Total Protein 5.9 g/dL (6.4-8.9); eGFR For Non-African Americans > 60 (> 60)
[2018-10-18] MEDS: *HR* FentaNYL (PF) 100 MCG/2 ML VIAL IVP PRN ×3 (06:50→14:16)
[2018-10-18] MEDS: 0.9 % Sodium Chloride 1,000 ML IVC SCH (09:06)
[2018-10-18] MEDS ORDERED: Isovue-370 500 ML INFUS..BTL IV ONE (12:48)
--- NOTE | 2018-10-18 12:57 | General Surgery Progress Note ---
Date of Encounter: 10/18/18 Time of Encounter: 12:53 Subjective Patient reports: feels better, pain is less, tolerating liquids well Narrative: General Surgery - Patient slowly improving, describes diminished LUQ abdominal pain. Tolerating clear liquids without increased abd pain, no nausea or vomiting. Patient remains afebrile, currently 97.6, pulse 77, respirations 18, blood pressure 119/77. Lungs: Clear, no abdominal pain with deep inspiration Abdomen: Soft, minimal tenderness in the left upper quadrant. No discernible masses. No rebound. No reported flatus or BM. Labs: WBC 6.9, hemoglobin 11.7, hematocrit 34.3; platelet count 274,000 Sodium 139, potassium 3.5, BUN 3, creatinine 0.41 Impression: Hospital day #3 - acute diverticulitis proximal descending colon with Extraluminal air consistent with perforation. Patient improved on IV antibiotics. Tolerating clear liquids. Recommendations: Advance diet to full Continue IV antibiotics (Levaquin and metronidazole) Repeat CT abdomen/pelvis in a.m. Objective Vital Signs - Last 8 Hours Temp Pulse Resp BP Pulse Ox 10/18/18 11:56 97.6 F 77 18 119/77 97 10/18/18 08:35 98.3 F 72 16 138/84 98 Intake and Output 10/17/18 10/18/18 10/18/18 23:59 07:59 15:59 Intake Total 100 / 100 250 / 250 1340 / 1340 Output Total 0 / 0 Balance 100 / 100 250 / 250 1340 / 1340 Intake: IV Fluids 100 / 100 250 / 250 1100 / 1100 0.9 % Sodium Chloride 1,000 ML 1000 / 1000 @ 50 mls/hr IVC .Q20H [facility] Rx#: [id number] Levaquin Premix 750mg/150 mL 150 / 150 750 mg In 150 ml @ 100 mls/hr IVPB Q24H [facility] Rx#:[id number] Flagyl Premix 500 MG/100 ML 500 100 / 100 100 / 100 100 / 100 mg In 100 ml @ 100 mls/hr IVPB Q8HR [facility] Rx#:[id number] Oral 0 / 0 0 / 0 240 / 240 Output: Urine 0 / 0 Other: Meal CLEARS # Voids 1 Weight 64 kg Patient Weight 10/18/18 23:59 Weight 64 kg - Labs 10/18/18 05:24 10/18/18 05:24 Diabetes panel 10/18/18 Range/Units 05:24 Sodium 139 (136-145) mEq/L Potassium 3.5 (3.5-5.1) mEq/L Chloride 105 (98-107) mEq/L Carbon Dioxide 26 (23-29) mEq/L BUN 3 L (6-20) mg/dL Creatinine 0.41 L (0.60-1.20) mg/dL Glucose 81 (70-105) mg/dL Calcium 8.7 (8.6-10.3) mg/dL AST 11 L (13-39) Units/L ALT 7 (7-52) Units/L Alkaline Phosphatase 41 (34-104) Units/L Albumin 3.2 L (3.5-5.7) g/dL Calcium panel 10/18/18 Range/Units 05:24 Calcium 8.7 (8.6-10.3) mg/dL Albumin 3.2 L (3.5-5.7) g/dL Pituitary panel 10/18/18 Range/Units 05:24 Sodium 139 (136-145) mEq/L Potassium 3.5 (3.5-5.1) mEq/L Chloride 105 (98-107) mEq/L Carbon Dioxide 26 (23-29) mEq/L BUN 3 L (6-20) mg/dL Creatinine 0.41 L (0.60-1.20) mg/dL Glucose 81 (70-105) mg/dL Calcium 8.7 (8.6-10.3) mg/dL Adrenal panel 10/18/18 Range/Units 05:24 Sodium 139 (136-145) mEq/L Potassium 3.5 (3.5-5.1) mEq/L Chloride 105 (98-107) mEq/L Carbon Dioxide 26 (23-29) mEq/L BUN 3 L (6-20) mg/dL Creatinine 0.41 L (0.60-1.20) mg/dL Glucose 81 (70-105) mg/dL Calcium 8.7 (8.6-10.3) mg/dL Total Bilirubin 0.2 L (0.3-1.0) mg/dL AST 11 L (13-39) Units/L ALT 7 (7-52) Units/L Alkaline Phosphatase 41 (34-104) Units/L Albumin 3.2 L (3.5-5.7) g/dL Consult Discharge Plan - Plan Referrals: NONE,PCP [Primary Care Provider] -
--- NOTE | 2018-10-18 15:56 | Internal Med Progress Note ---
Hospitalist Progress Note - Encounter Date of Encounter: 10/18/18 Time of Encounter: 15:53 - Subjective Interval History: Pt states she is feeling better. and mother at bedside. She denies fever chills/N/V or diarrhea. She denies chest pain or SOB. - Exam Vitals: Temp Pulse Resp BP Pulse Ox 98.2 F 74 14 103/71 97 10/18/18 14:54 10/18/18 14:54 10/18/18 14:54 10/18/18 14:54 10/18/18 14:54 Exam: General appearance: Present: cooperative, mild distress (Left quadrant abdominal pain/Right flank pain), A&O X 3, pleasant, answers questions appropriately Exam: - Head Head exam: Present: atraumatic, normocephalic - Eye Eye exam: Present: PERRL, conjuntiva pink, sclera anicteric Pupils: Present: PERRL - ENT ENT exam: Present: normal exam - Neck Neck exam general surgery: Present: supple, trachea midline. Absent: lymphadenopathy - Respiratory Respiratory exam: Present: CTAB. Absent: accessory muscle use, rales, rhonchi, wheezes - Cardiovascular Cardiovascular exam: Present: RRR, +S1, +S2. Absent: diastolic murmur, gallop, rubs, systolic murmur - GI/Abdominal GI/Abdominal exam: Present: hypoactive bowel sounds, soft, tenderness much im proved, no peritoneal signs. Absent: distended - Rectal Rectal exam: Present: deferred - Additional comments: exam deferred. - Extremities Exam Extremities exam: Present: warm, radial pulses palpable and symmetrical. Absent: calf tenderness, cyanotic, pedal edema - Back Exam Back exam: Present: normal inspection - Neurological Exam Neurological exam: Present: alert, CN II-XII intact, oriented X3, no focal deficits. Absent: pronater drift, facial droop, speech deficit - Psychiatric Psychiatric exam: Present: normal affect, normal mood - Skin Skin exam: Present: dry, intact - Assessment and Plan (1) Diverticulitis of large intestine with perforation Current Visit: Yes Status: Acute Assessment and Plan: Acute diverticulitis of the large intestine w/suggested walled-off perforation as seen on CT abdomen/pelvis. IVPB Flagyl and Levaquin ordered for infection control. Pts WBC 13.0 on admission down to 8.7. Zofran and Phenergan IVP ordered for N/V control. NPO. 0.9 IV fluids @ 100 mls/hr. Surgery on board and following. CT abdomen and pelvis CT/CT abd pelvis wo no iv no oral IMPRESSION: Acute short segment diverticulitis involving the proximal descending colon. There are few small bubbles of extraluminal gas suggesting a walled-off perforation. There is no drainable fluid collection/abscess. Follow-up is recommended. (2) Abdominal pain Current Visit: Yes Status: Acute Assessment and Plan: Pt states abdominal pain improved but sometimes feels some pressure. Eating and tolerating diet. Denies fever or chills. Due to acute diverticulitis with walled off perf. Continue on antibiotics and fluids. Surgery following. (3) Anxiety and depression Current Visit: Yes Status: Chronic Assessment and Plan: Hx of chronic anxiety and depression. Continue pts. Lexapro. DVT Prophylaxis: Bilateral SCDs on LEs for DVT prophylaxis d/t possible surgical intervention. - Summary of Assessment and Plan Summary of Assessment and Plan: History of present illness: Pernell Ricardo Ms. Freitas is a 43 year old female w/PMH of anxiety and depression presents as a transfer from [facility] ED for CC of abdominal pain and flank pain that began on Thursday. Pt. reports associated sx of fever and chills which have since subsided. Pt. states this has never happened before. Reports no alleviating or aggravating factors. States she has right flank pain and left quadrant pain. Pt. states she was seen at Urgent Care and dxd w/constipation and discharged on mag citrate w/o relief. Pt. denies unusual bleeding or bloody/dark stools, recent illness, nausea, vomiting, headache, changes in vision, chest pain, shortness of breath, cough, chest congestion, diarrhea, constipation, dizziness, ligh theadedness, numbness, tingling, pre-syncope, or syncope. - Time Spent with Patient Total time spent is greater than 50% in coordination of care (as documented) at patient's floor/unit and/or counseling patient: less than 15 minutes Plan of Care Discussed with: patient Internal Medicine: Result - Labs CBC & Chem 7: 10/18/18 05:24 10/18/18 05:24 Labs: Short CBC 10/18/18 Range/Units 05:24 WBC 6.9 (4.3-11.1) K/mcL Hgb 11.7 (11.5-15.4) g/dL Hct 34.3 L (35.3-44.9) % Plt Count 274 (140-400) K/mcL Neutrophils # 4.0 (1.6-8.9) K/mcL BMP 10/18/18 05:24 Sodium 139 Potassium 3.5 Chloride 105 Carbon Dioxide 26 BUN 3 L Creatinine 0.41 L Glucose 81 Calcium 8.7 Liver Function 10/18/18 Range/Units 05:24 Total Bilirubin 0.2 L (0.3-1.0) mg/dL AST 11 L (13-39) Units/L ALT 7 (7-52) Units/L Alkaline Phosphatase 41 (34-104) Units/L Albumin 3.2 L (3.5-5.7) g/dL Consult Discharge Plan - Plan Referrals: NONE,PCP [Primary Care Provider] - (1) Diverticulitis of large intestine with perforation Qualifiers: Diverticulitis bleeding: without bleeding Qualified Code(s): K57.20 - Diverticulitis of large intestine with perforation and abscess without bleeding (2) Abdominal pain Qualifiers: Abdominal location: left upper quadrant Qualified Code(s): R10.12 - Left upper quadrant pain
[2018-10-18] MEDS: Levofloxacin 750 MG/150 ML 750 MG/150 ML BAG IVPB SCH (20:14)
[2018-10-19] MEDS: MetroNIDAZOLE 500 MG/100 ML 500 MG/100 ML BAG IVPB SCH ×4 (00:14→23:56)
[2018-10-19 03:52] LABS: Basophils % 0.5 %; Eosinophils # 0.1 K/mcL (0.0-0.6); Eosinophils % 2.4 %; Hematocrit 35.8 % (35.3-44.9); Hemoglobin 12.1 g/dL (11.5-15.4); Immature Granulocytes % 0.7 % (0-4); Lymphocytes % 33.7 %; Mean Corpuscular HGB Conc 33.8 g/dL (31.6-35.5); Mean Corpuscular Hemoglobin 31.9 pg (28.0-33.3); Mean Corpuscular Volume 94.5 fL (83.0-100.0); Mean Platelet Volume 9.1 fL (9.4-12.4); Monocytes # 0.7 K/mcL (0.0-1.3); Monocytes % 12.7 %; Neutrophils # 2.9 K/mcL (1.6-8.9); Platelet Count 289 K/mcL (140-400); Red Blood Count 3.79 M/mcL (3.82-4.97); Red Cell Distribution Width 12.1 % (11.5-14.5)
[2018-10-19 04:07] LABS: Alanine Aminotransferase 10 Units/L (7-52); Albumin 3.1 g/dL (3.5-5.7); Albumin/Globulin Ratio 1.3 (1.1-2.2); Alkaline Phosphatase 36 Units/L (34-104); Aspartate Amino Transferase 20 Units/L (13-39); BUN/Creatinine Ratio 7 (6-26); Bilirubin,Total 0.2 mg/dL (0.3-1.0); Blood Urea Nitrogen 3 mg/dL (6-20); Calcium 8.5 mg/dL (8.6-10.3); Carbon Dioxide 27 mEq/L (23-29); Chloride 106 mEq/L (98-107); Globulin 2.4 g/dL (2.4-3.5); Glucose 87 mg/dL (70-105); Osmolality,Calculated 290 (280-300); Potassium 3.4 mEq/L (3.5-5.1); Sodium 142 mEq/L (136-145); Total Protein 5.5 g/dL (6.4-8.9); eGFR For Non-African Americans > 60 (> 60)
[2018-10-19 04:20] LABS: Platelet Estimate Normal (Normal); Reactive Lymphocytes Present (Not Present)
[2018-10-19] MEDS: *HR* OxyCODONE Immed Rel 5 MG TABLET PO PRN ×3 (05:46→18:55)
[2018-10-19] MEDS: 0.9 % Sodium Chloride 1,000 ML IVC SCH (10:00)
[2018-10-19] MEDS ORDERED: Isovue-370 500 ML INFUS..BTL PO ONE (10:52)
[2018-10-19] MEDS ORDERED: Isovue-370 500 ML INFUS..BTL IVP ONE (12:51)
--- NOTE | 2018-10-19 13:34 | General Surgery Progress Note ---
Date of Encounter: 10/19/18 Time of Encounter: 13:23 Subjective Narrative: General Surgery - Patient complaining of cramping abdominal pain in the upper abdomen, both upper quadrants. No nausea or vomiting. Abdominal tenderness is significantly improved/diminished. The patient remains afebrile, currently 98.3, pulse 66, RR 14, BP 144/88 Lungs: Clear, there is some increased left upper quadrant pain with deep inspiration Abdomen: Soft, nontender, even to deep palpation in the left upper quadrant. No discernible intra-abdominal masses. No rebound or peritoneal signs. Bowel sounds are active. The patient has yet to pass flatus or move her bowels. Laboratories: WBC 5.8, hemoglobin 12.1, hematocrit 35.8. Platelet count 289,000; differential within normal limits. Electrolytes notable for potassium 3.4, BUN 3, creatinine 0.45 CT abdomen/pelvis - completed this morning, reviewed with [facility]. Findings include: Several diverticula descending colon near the splenic flexure with minimal stranding around these diverticula. Minimal wall thickening which appears to be improved from prior examination. A small contained perforation without evidence of abscess is still noted. Impression: 43-year-old, approximately 4 days status post transfer from [facility] ED with left upper quadrant abd pain due to acute diverticulitis proximal descending colon with evidence of a contained perforation. The patient has clinically improved with IV antibiotics. Physical examination demonstrates significantly diminished abdominal tenderness. The patient is currently complaining of cramping abdominal pain but I believe this to be due to returning bowel function. Recommendations: Maintain full liquid diet for now. monitor for worsening abd pain Continue IV antibiotics (Levaquin and metronidazole) Correct hypokalemia Objective Vital Signs - Last 8 Hours Temp Pulse Resp BP Pulse Ox 10/19/18 10:23 98.3 F 66 14 144/88 97 Intake and Output 10/18/18 10/19/18 10/19/18 23:59 07:59 15:59 Intake Total 683 / 683 377 / 377 510 / 510 Output Total 100 / 100 500 / 500 Balance 583 / 583 -123 / -123 510 / 510 Intake: IV Fluids 683 / 683 377 / 377 390 / 390 0.9 % Sodium Chloride 1,000 ML 433 / 433 277 / 277 290 / 290 @ 50 mls/hr IVC .Q20H [facility] Rx#: [id number] Levaquin Premix 750mg/150 mL 150 / 150 750 mg In 150 ml @ 100 mls/hr IVPB Q24H [facility] Rx#:[id number] Flagyl Premix 500 MG/100 ML 500 100 / 100 100 / 100 100 / 100 mg In 100 ml @ 100 mls/hr IVPB Q8HR [facility] Rx#:[id number] Oral 0 / 0 0 / 0 120 / 120 Output: Urine 100 / 100 500 / 500 Other: Meal Dinner Lunch Percent of Meal Consumed 5% 0% # Voids 1 # Bowel Movements 0 0 Weight 64.4 kg Patient Weight 10/19/18 23:59 Weight 64.4 kg - Labs 10/19/18 03:11 10/19/18 03:11 Diabetes panel 10/19/18 Range/Units 03:11 Sodium 142 (136-145) mEq/L Potassium 3.4 L (3.5-5.1) mEq/L Chloride 106 (98-107) mEq/L Carbon Dioxide 27 (23-29) mEq/L BUN 3 L (6-20) mg/dL Creatinine 0.45 L (0.60-1.20) mg/dL Glucose 87 (70-105) mg/dL Calcium 8.5 L (8.6-10.3) mg/dL AST 20 (13-39) Units/L ALT 10 (7-52) Units/L Alkaline Phosphatase 36 (34-104) Units/L Albumin 3.1 L (3.5-5.7) g/dL Calcium panel 10/19/18 Range/Units 03:11 Calcium 8.5 L (8.6-10.3) mg/dL Albumin 3.1 L (3.5-5.7) g/dL Pituitary panel 10/19/18 Range/Units 03:11 Sodium 142 (136-145) mEq/L Potassium 3.4 L (3.5-5.1) mEq/L Chloride 106 (98-107) mEq/L Carbon Dioxide 27 (23-29) mEq/L BUN 3 L (6-20) mg/dL Creatinine 0.45 L (0.60-1.20) mg/dL Glucose 87 (70-105) mg/dL Calcium 8.5 L (8.6-10.3) mg/dL Adrenal panel 10/19/18 Range/Units 03:11 Sodium 142 (136-145) mEq/L Potassium 3.4 L (3.5-5.1) mEq/L Chloride 106 (98-107) mEq/L Carbon Dioxide 27 (23-29) mEq/L BUN 3 L (6-20) mg/dL Creatinine 0.45 L (0.60-1.20) mg/dL Glucose 87 (70-105) mg/dL Calcium 8.5 L (8.6-10.3) mg/dL Total Bilirubin 0.2 L (0.3-1.0) mg/dL AST 20 (13-39) Units/L ALT 10 (7-52) Units/L Alkaline Phosphatase 36 (34-104) Units/L Albumin 3.1 L (3.5-5.7) g/dL Consult Discharge Plan - Plan Referrals: NONE,PCP [Primary Care Provider] -
[2018-10-19] MEDS: Levofloxacin 750 MG/150 ML 750 MG/150 ML BAG IVPB SCH (20:03)
--- NOTE | 2018-10-20 00:34 | Internal Med Progress Note ---
Hospitalist Progress Note - Encounter Date of Encounter: 10/19/18 Time of Encounter: 19:00 - Subjective Interval History: SUBJECTIVE: The patient feels progressively better. Her left upper quadrant abdominal pain is relatively mild. Associated with some abdominal cramping. Not associated with any nausea or vomiting. OBJECTIVE: Skin: Free of rash and discoloration. ENMT: Oral/pharyngeal mucosa is normal in appearance. Eyes: Sclera is white. There is no discharge from eyes. Respiratory: Normal breath sounds; no crackles or wheezes. CV: Heart is regular; no gallop or murmur. GI: Abdomen is mildly tender in the left upper quadrant. There is no palpable mass or visceromegaly. Neuro: There is no focal deficits. ADDITIONAL DATA: WBC is 5.8 thousand. Normal hemoglobin and platelet count. Potassium is 3.4; 3.5 yesterday. Creatinine 0.45. ASSESSMENT AND PLAN: Acute diverticulitis of proximal descending colon with contained perforation. See notes from general surgery. To continue IV Levaquin and IV Flagyl. The patient is on liquids. Anxiety with depression. To continue Lexapro. DISPOSITION: I anticipate her discharge in a day or two. - Exam Vitals: Temp Pulse Resp BP Pulse Ox 98.2 F 66 14 119/81 97 10/19/18 18:37 10/19/18 18:37 10/19/18 18:37 10/19/18 18:37 10/19/18 18:37 Exam: xx - Assessment and Plan (1) Diverticulitis of large intestine with perforation Current Visit: Yes Status: Acute (2) Anxiety and depression Current Visit: Yes Status: Chronic - Time Spent with Patient Total time spent is greater than 50% in coordination of care (as documented) at patient's floor/unit and/or counseling patient: 25 - 35 minutes Plan of Care Discussed with: patient Internal Medicine: Result - Labs CBC & Chem 7: 10/19/18 03:11 10/19/18 03:11 Labs: Short CBC 10/19/18 Range/Units 03:11 WBC 5.8 (4.3-11.1) K/mcL Hgb 12.1 (11.5-15.4) g/dL Hct 35.8 (35.3-44.9) % Plt Count 289 (140-400) K/mcL Neutrophils # 2.9 (1.6-8.9) K/mcL BMP 10/19/18 03:11 Sodium 142 Potassium 3.4 L Chloride 106 Carbon Dioxide 27 BUN 3 L Creatinine 0.45 L Glucose 87 Calcium 8.5 L Liver Function 10/19/18 Range/Units 03:11 Total Bilirubin 0.2 L (0.3-1.0) mg/dL AST 20 (13-39) Units/L ALT 10 (7-52) Units/L Alkaline Phosphatase 36 (34-104) Units/L Albumin 3.1 L (3.5-5.7) g/dL - Impressions Impressions Abdomen/Pelvis CT 10/19/18 10:15 IMPRESSION: Persistent diverticulitis seen within the region of the splenic flexure slightly improved from the prior examination. D/ / Carlos Vega MD / Carlos Vega MD Interpreting Provider: Carlos Vega MD Consult Discharge Plan - Plan Referrals: Pernell Ayers DO [Partnered Physician] - _ (1) Diverticulitis of large intestine with perforation Qualifiers: Diverticulitis bleeding: without bleeding Qualified Code(s): K57.20 - Diverticulitis of large intestine with perforation and abscess without bleeding
[2018-10-20] MEDS: *HR* OxyCODONE Immed Rel 5 MG TABLET PO PRN (05:02)
[2018-10-20] MEDS: MetroNIDAZOLE 500 MG/100 ML 500 MG/100 ML BAG IVPB SCH (09:41)
[2018-10-20 14:54] VITALS: BP 120/81
--- NOTE | 2018-10-20 15:33 | Discharge Summary ---
Date of Encounter: 10/20/18 Time of Encounter: 15:32 - Discharge Diagnosis (1) Diverticulitis of large intestine with perforation Priority: Primary Status: Acute Qualifiers: Diverticulitis bleeding: without bleeding Qualified Code(s): K57.20 - Diverticulitis of large intestine with perforation and abscess without bleeding (2) Anxiety and depression Priority: Secondary Status: Chronic Hospital course: HOSPITAL COURSE: The patient is a 43-year-old woman. We admitted her with left upper quadrant abdominal pain; started a couple days before this admission. The patient did not report to us any changes in her bowel movements pattern. She reported to has normal urination. Denies fever and chills. CT of abdomen/pelvis revealed diverticulitis of proximal portion of descending colon. With contained microperforation. Surgery was consulted. The patient was put on nothing by mouth diet/IV fluids. She was treated with IV Levaquin/IV metronidazole. She got better. We advanced her diet initially to clear liquids liquids; regular diet on the day of discharge. CONDITION AT DISCHARGE: She did well with her breakfast and lunch on the day of discharge; did not develop any worsening of her mild abdominal pain. Denies nausea and vomiting. She has normal bowel movements. Denies chest pain and difficulty breathing. Skin: Free of rash and discoloration. Respiratory: Normal breath sounds with no crackles and wheezes bilaterally. CV: Heart is regular with no gallop or murmur. GI: Abdomen is flat and soft with no palpable mass or visceromegaly. Neuro exam: There is no focal deficits. Normal speech, swallowing and gait. SEE DISCHARGE ORDERS/MEDICATIONS Follow-up with Dr. Farias, general surgery in about 10 days. HOSPITAL COURSE: The patient is a 43-year-old woman. We admitted her with left upper quadrant abdominal pain; started a couple days before this admission. The patient did not report to us any changes in her bowel movements pattern. She reported to has normal urination. Denies fever and chills. CT of abdomen/pelvis revealed diverticulitis of proximal portion of descending colon. With contained microperforation. Surgery was consulted. The patient was put on nothing by mouth diet/IV fluids. She was treated with IV Levaquin/IV metronidazole. She got better. We advanced her diet initially to clear liquids liquids; regular diet on the day of discharge. CONDITION AT DISCHARGE: She did well with her breakfast and lunch on the day of discharge; did not develop any worsening of her mild abdominal pain. Denies nausea and vomiting. She has normal bowel movements. Denies chest pain and difficulty breathing. Skin: Free of rash and discoloration. Respiratory: Normal breath sounds with no crackles and wheezes bilaterally. CV: Heart is regular with no gallop or murmur. GI: Abdomen is flat and soft with no palpable mass or visceromegaly. Neuro exam: There is no focal deficits. Normal speech, swallowing and gait. SEE DISCHARGE ORDERS/MEDICATIONS Follow-up with Dr. Farias, general surgery in about 10 days. Discharge discussed with: patient, family - Time Spent with Patient Total time spent providing and/or coordinating discharge services: Less than 30 minutes (30 minutes..) - Discharge Medications Prescriptions: Ondansetron ODT [Zofran ODT] 4 mg SL Q4HR PRN #6 tab.rapdis PRN Reason: Nausea And Vomiting Amoxicillin/Clavulanate [Augmentin] 875 mg PO BIDWM 10 Days #20 tablet metroNIDAZOLE [Metronidazole] 500 mg PO Q8H 10 Days #30 tablet OxyCODONE Immed Rel [Roxicodone 5 MG] 5 mg PO Q6H PRN 5 Days #10 tablet PRN Reason: Severe Pain Home Medications: Escitalopram [Lexapro] 15 mg PO DAILY 10/15/18 [History] ALPRAZolam [Xanax 0.25 MG Tablet] 0.25 mg PO BID PRN 10/18/18 [History] Acetaminophen [Tylenol] 650 mg PO Q6HR PRN tablet 10/20/18 [Rx] Amoxicillin/Clavulanate [Augmentin] 875 mg PO BIDWM 10 Days #20 tablet 10/20/18 [Rx] Ondansetron ODT [Zofran ODT] 4 mg SL Q4HR PRN #6 tab.rapdis 10/20/18 [Rx] OxyCODONE Immed Rel [Roxicodone 5 MG] 5 mg PO Q6H PRN 5 Days #10 tablet 10/20/18 [Rx] metroNIDAZOLE [Metronidazole] 500 mg PO Q8H 10 Days #30 tablet 10/20/18 [Rx] Allergies/Adverse Reactions: Allergy/AdvReac Type Severity Reaction Status Date / Time No Known Allergies Allergy Verified 10/18/18 20:00 Date of admission: 10/16/18 02:02 Primary care physician: PCP NONE Consults: 10/16/18 01:52 Consult to Surgery [CONS] Routine Consulting Provider: Robbie Farias Reason for Consult: Patient has new onset of diverticulitis. CT abdomen/pelvis shows acute short segment diverticulitis involving the proximal descending colon. There are a few small bubbles of extraluminal gas suggesting perforation. There is no drainable fluid collection/abscess. Follow-up is recommended. Call Completed: No 10/16/18 02:05 Consult to [employer]and [employer] [CONS] Routine Reason for SW Consult: Please assess patient for any possible home needs for post-discharge planning. Discharging clinician: Horacio Welch Anticipated date of discharge: 10/20/18 - Constitutional Vitals: Temp Pulse Resp BP Pulse Ox 98 F 63 16 120/81 97 10/20/18 14:17 10/20/18 14:17 10/20/18 14:17 10/20/18 14:17 10/20/18 14:17 General appearance: Present: cooperative, A&O X 3, answers questions appropriately Exam: xx - Patient Status Disposition: Home, Self-Care Condition: Fair Functional capacity at discharge: independent ambulation Overall status at discharge: patient is progressing back to baseline - Discharge Instructions Follow Up With: Lucho Farias MD [Non-Partnered Physician] - Pernell Ayers DO [Partnered Physician] - Additional Instructions: FOLLOW-UP WITH , SURGERY -- ON 10/29/18.. - Diet and Activity Activity: increase activity as tolerated Diet: advance to your usual diet - VTE Reasons for not Prescribing Prophylaxis: Treatment not Indicated - Low risk for VTE Deep Vein Thrombosis/Pulmonary Embolism Present on Admission: No
--- NOTE | 2018-10-20 16:45 | General Surgery Progress Note ---
Date of Encounter: 10/20/18 Time of Encounter: 14:30 Subjective Patient reports: feels better Narrative: General Surgery - this is a delayed note The patient is feeling much improved. Prior complaints cramping upper abdominal pain has resolved. The patient is tolerating a full liquid diet without nausea or vomiting. The patient now passing flatus and has had a bowel movement. The patient remains afebrile, currently 98.0, pulse 63, respiratory rate 16, blood pressure 120/81. Lungs: Clear, no abdominal pain and deep inspiration Abdomen: Soft, nontender to deep palpation. No rebound. No discernible intra-abdominal masses. Active bowel sounds. Laboratories: WBC 5.8, hemoglobin 12.1 with hematocrit 35.8; platelet count 289,000. Differential remaining within normal limits. Sodium 142, potassium 3.4, chloride 106, BUN 3, creatinine 0.45. LFTs within normal limits. Impression/Plan: 43-year-old, proximally 5 days status post transfer from [facility] ED for further evaluation and treatment left upper quadrant abdominal pain due to acute diverticulitis of the proximal descending colon with evidence of a contained perforation. Patient is significantly improved with IV antibiotics. CT completed yesterday demonstrates several diverticula of the descending colon near the splenic flexure with minimal stranding and minimal wall thickening in the vicinity of these diverticula. The inflammatory findings are improved from prior examination. A small contained perforation without evidence of abscess remains. The asociated abd pain has resolved. The patient's status is sufficiently improved to allow discharge home on oral antibiotics. Completion of a 14 day course ATB is recommended. Outpatient follow-up in my office, 10/29/18, is also recommended. Discussed with Dr Kahn. Objective Vital Signs - Last 8 Hours Temp Pulse Resp BP Pulse Ox 10/20/18 14:17 98 F 63 16 120/81 97 10/20/18 10:34 97.8 F 64 16 118/80 97 Intake and Output 10/20/18 10/20/18 10/20/18 07:59 15:59 23:59 Intake Total 100 / 100 580 / 580 Output Total 0 / 0 Balance 100 / 100 580 / 580 Intake: IV Fluids 100 / 100 100 / 100 Flagyl Premix 500 MG/100 ML 500 100 / 100 100 / 100 mg In 100 ml @ 100 mls/hr IVPB Q8HR [facility] Rx#:[id number] Oral 0 / 0 480 / 480 Output: Urine 0 / 0 Other: Meal Lunch Percent of Meal Consumed 0% # Voids 1 1 Weight 65.2 kg Patient Weight 10/20/18 23:59 Weight 65.2 kg - Labs 10/19/18 03:11 10/19/18 03:11 - VTE Reasons for not Prescribing Prophylaxis: Treatment not Indicated - Low risk for VTE Deep Vein Thrombosis/Pulmonary Embolism Present on Admission: No Consult Discharge Plan - Plan Additional Instructions: FOLLOW-UP WITH , SURGERY -- ON 10/29/18.. Referrals: Lucho Farias MD [Non-Partnered Physician] - Pernell Ayers DO [Partnered Physician] - Prescriptions: Ondansetron ODT [Zofran ODT] 4 mg SL Q4HR PRN #6 tab.rapdis PRN Reason: Nausea And Vomiting Amoxicillin/Clavulanate [Augmentin] 875 mg PO BIDWM 10 Days #20 tablet metroNIDAZOLE [Metronidazole] 500 mg PO Q8H 10 Days #30 tablet OxyCODONE Immed Rel [Roxicodone 5 MG] 5 mg PO Q6H PRN 5 Days #10 tablet PRN Reason: Severe Pain
== END 2018-10-20 16:22 | disposition home or self-care (01) | DRG 392 ==
LOC: 3ANU → SUATTDRO 10-16 02:02
PROVIDERS: ADMIT Pediatrics; ATTEND Internal Medicine